=== PATIENT | female | born 1980 | race Caucasian/White ===

== ENCOUNTER 2017-06-07 01:14 | Emergency (ER) | payer MEDICAID ==
[2017-06-07] MEDS: IBUPROFEN 800 MG TAB PO (06:47)
[2017-06-07] MEDS: FLUORESCEIN STRIP LEFT EYE (06:48)
== END 2017-06-07 08:32 | disposition home or self-care (01) ==
LOC: FTE 08:32
DX: M25.512 Pain in left shoulder (principal); H57.12 Ocular pain, left eye
CPT/HCPCS: 70480; 99284-25

== ENCOUNTER 2017-06-28 19:57 | Emergency (ER) | payer MEDICAID ==
[2017-06-28] MEDS: IBUPROFEN 600 MG TAB PO (23:23)
[2017-06-28] MEDS: ACETAMINOPHEN 325 MG TAB PO (23:23)
[2017-06-28] MEDS ORDERED: PROMETHAZINE/DM (CUP) PO (23:30)
[2017-06-28] MEDS: PROMETHAZINE (1.25 MG/ML) 5 ML CUP PO (23:45)
== END 2017-06-29 01:32 | disposition home or self-care (01) ==
LOC: FTE 06-29 01:32
DX: J11.1 Influenza due to unidentified influenza virus with other respiratory manifestations (principal)
CPT/HCPCS: 87400; 87880; 99283

== ENCOUNTER 2017-07-01 18:57 | Emergency (ER) | payer MEDICAID | END 2017-07-01 20:24 | disposition home or self-care (01) | LOC: E/R 20:24 | DX: J20.9 Acute bronchitis, unspecified (principal) | CPT/HCPCS: 99284; Z7502 ==

== ENCOUNTER 2018-11-23 18:30 | Emergency (ER) | payer OTHER, MEDICAID ==
[2018-11-23 18:54] LABS: URINE BLOOD (Dip) POC Trace-intact (NEGATIVE); URINE GLUCOSE (Dip) POC Negative (NEGATIVE); URINE KETONES (Dip) POC Negative (NEGATIVE); URINE LEUKOCYTE EST (Dip) POC 2+ (NEGATIVE); URINE NITRITE (Dip) POC Negative (NEGATIVE); URINE TOTAL PROTEIN POC Negative (NEGATIVE)
[2018-11-23] MEDS: IBUPROFEN 600 MG TAB PO (19:32)
== END 2018-11-23 20:21 | disposition home or self-care (01) ==
LOC: FTE 18:30
DX: N10 Acute pyelonephritis (principal)
CPT/HCPCS: 81003; 81025; 99283